=== PATIENT | male | born 1985 | race Caucasian/White ===

== ENCOUNTER 2016-08-20 17:11 | Emergency (ER) | payer SELFPAY ==
[2016-08-20] MEDS ORDERED: DIPH/PERTUSS(ACELL)/TETANUS VAC/PF 0.5 ML SYR (>=10YO) IM ONE (17:36)
[2016-08-20] MEDS ORDERED: CEFAZOLIN 1 GM/D5W RTU 50 ML IV ONE (17:45)
[2016-08-20] MEDS ORDERED: MORPHINE SULFATE 10 MG/ML INJ IV ONE (17:45)
[2016-08-20] MEDS ORDERED: ONDANSETRON HCL INJ/PF 4 MG/2 ML SDV IV ONE (17:45)
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
[2016-08-20] MEDS ORDERED: LIDOCAINE 1% INJ-PF (10 MG/ML) 30 ML SDV INJ ONE (18:41)
[2016-08-20] MEDS ORDERED: HYDROMORPHONE HCL INJ/PF 2 MG/ML AMPULE IV ONE (19:52)
[2016-08-20 20:45] VITALS: BP 186/89
== END 2016-08-20 20:55 | disposition short-term general hospital (02) ==
LOC: ER 17:11
PROC: 0HQGXZZ Repair Left Hand Skin, External Approach (ICD-10-PCS; principal; 2016-08-20)
DX: S67.22XA Crushing injury of left hand, initial encounter (principal); S61.213A Laceration without foreign body of left middle finger without damage to nail, initial encounter; S61.412A Laceration without foreign body of left hand, initial encounter; W20.8XXA Other cause of strike by thrown, projected or falling object, initial encounter; Y93.89 Activity, other specified; R03.0 Elevated blood-pressure reading, without diagnosis of hypertension; F17.200 Nicotine dependence, unspecified, uncomplicated; Z88.5 Allergy status to narcotic agent
CPT/HCPCS: 12001; 99284; 90471; 96375; 96365; 73130 ×2; 90715; J0690; J3490; J2270; J1170; J2405

== ENCOUNTER 2016-08-25 02:39 | Emergency (ER) | payer SELFPAY ==
[2016-08-25] MEDS ORDERED: OXYCODONE-ACETAMINOPHEN 5-325 MG TABLET PO ONE (03:52)
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
[2016-08-25 10:41] VITALS: BP 148/92
== END 2016-08-25 08:45 | disposition home or self-care (01) ==
LOC: ER 02:39
DX: S67.22XA Crushing injury of left hand, initial encounter (principal); S67.21XA Crushing injury of right hand, initial encounter; R03.0 Elevated blood-pressure reading, without diagnosis of hypertension; F17.200 Nicotine dependence, unspecified, uncomplicated; W23.1XXA Caught, crushed, jammed, or pinched between stationary objects, initial encounter
CPT/HCPCS: 99283

== ENCOUNTER 2016-11-15 03:21 | Emergency (ER) | payer SELFPAY ==
[2016-11-15 03:34] VITALS: BP 128/88
[2016-11-15] MEDS ORDERED: OXYCODONE-ACETAMINOPHEN 5-325 MG TABLET PO ONE (05:15)
[2016-11-15] MEDS ORDERED: LIDOCAINE 1%/EPINEPHRINE INJ 20 ML VIAL INJ ONE (05:15)
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
== END 2016-11-15 06:33 | disposition home or self-care (01) ==
LOC: ER 03:21
PROC: 0HQ1XZZ Repair Face Skin, External Approach (ICD-10-PCS; principal; 2016-11-15)
DX: S09.90XA Unspecified injury of head, initial encounter (principal); S01.81XA Laceration without foreign body of other part of head, initial encounter; S20.211A Contusion of right front wall of thorax, initial encounter; R07.81 Pleurodynia; M54.2 Cervicalgia; Y04.2XXA Assault by strike against or bumped into by another person, initial encounter; F17.200 Nicotine dependence, unspecified, uncomplicated
CPT/HCPCS: 99284; 71101; 70450; 72125; 12011; L0120; J3490